=== PATIENT | male | born 1955 | race African-American/Black ===

== ENCOUNTER 2019-02-27 14:00 | Emergency (ER) | payer SELFPAY ==
[~2019-02-27] VITALS: Ht 182.9 cm; Wt 64.0 kg
[2019-02-27] MEDS ORDERED: IV NORMAL SALINE 1000 ML BAG IV ONE (14:15)
[2019-02-27 14:29] LABS: BASOPHILS % (AUTO) 0.5 % (0.0-2.0); EOSINOPHILS # (AUTO) 0.3 K/uL (0.0-0.7); EOSINOPHILS % (AUTO) 3.4 % (0.0-7.0); HEMATOCRIT 37.1 % (36.7-47.1); HEMOGLOBIN 12.3 g/dL (12.5-16.3); LYMPHOCYTES # (AUTO) 0.6 K/uL (20.0-40.0); MEAN CORPUSCULAR HEMOGLOBIN 31.2 uug (23.8-33.4); MEAN CORPUSCULAR HGB CONC 33 g/dL (32.5-36.3); MEAN CORPUSCULAR VOLUME 93.8 fL (73.0-96.2); MONOCYTES # (AUTO) 0.7 K/uL (2.0-10.0); MONOCYTES % (AUTO) 7.4 % (0.0-11.0); NEUTROPHILS # (AUTO) 7.4 K/uL (1.8-8.9); NEUTROPHILS % (AUTO) 81.7 % (38.5-71.5); PLATELET COUNT (AUTO) 130 K/uL (152-348); RED BLOOD CELL COUNT(AUTO) 3.96 MIL/uL (4.06-5.63)
--- NOTE | 2019-02-27 14:33 | NUR ---
Security officers x2 are at bedside checking for contrabond items (e.g. crack pipe seenlighters, matches, green colored "crumbs").
[2019-02-27 14:38] LABS: CREATININE 0.9 mg/dL (0.6-1.3); POTASSIUM 3.6 mmol/L (3.5-5.1)
[2019-02-27 14:43] LABS: BILIRUBIN,DIRECT 0.2 mg/dL (0.0-0.2); BILIRUBIN,TOTAL 0.9 mg/dL (0.2-1.0); TOTAL PROTEIN, SERUM 6.7 g/dL (6.4-8.2)
[2019-02-27 14:45] LABS: ETHANOL < 3 MG/DL (0-0)
--- NOTE | 2019-02-27 14:56 | NUR ---
Social worders Karol & Hellen are at bedside.
[2019-02-27 15:01] LABS: CREATINE KINASE, TOTAL 180 U/L (39-308); MAGNESIUM 1.9 mg/dL (1.8-2.4)
--- NOTE | 2019-02-27 15:05 | NUR ---
Call placed to [facility], Dr. Raza has been paged.
--- NOTE | 2019-02-27 15:10 | NUR ---
JERO speaking with Dr. Raza ([facility])
--- NOTE | 2019-02-27 15:13 | NUR ---
Social Work Note Social Work consult was ordered on this 63 year old male who was brought in by [employer] as he was found altered and sleeping with multiple coats on him. [employer] called 911.Pt. speaks softly but is alert and oriented to person, place and situation upon evaluation. He denies substance abuse and tox screen is still pending. Patient says he takes Cogentin and then adds that he takes Haldol. He does not appear psychotic and is neither suicidal or homocidal. Patient request that he be transferred to a half-way downtown. This vp digital marketing social media and crm spoke with Chetan [phone] at [employer] at 1505 and gave a warm hand-off. He said pt. can come there today and was advised by this mortgage underwriter that the patient is still in our ED. Pt. is reluctant to provide history. He mumbles when asked if he been hospitalized on a psychiatric unit and says "[facility]". Pt. will be given a TAP card to travel to [facility], [address] [place] [address]. Pt. is very agreeable to going to [facility] and in fact. requested a half-way downtown as he is familiar with the area. Pt. was given resources for follow up for his mental health needs. There does not appear to be any acute psychiatric condition currently. Dr Perrin, treating MD was advised of the plan and will discharge pt. once he is medically clear.Copy of homeless resources and referrals given to patient and a copy was placed in his chart. Pt. signed homeless waiver and copy will be placed in his chart.
--- NOTE | 2019-02-27 15:45 | NUR ---
Patient is for discharge per Dr Perrin. Urine tests are cancelled per MD.
--- NOTE | 2019-02-27 15:49 | NUR ---
Patient was given written and verbal discharge instructions. Patient verbalized understanding & compliance of instructions. Patient is ambulatory with steady gait. Jail placement done with hands off to [facility] staff . Patient was given list of available shelters in surrounding area as well. Copy of EKG was also provided per MD order. TAP card given for bus transportation.
== END 2019-02-27 15:49 | disposition home or self-care (01) ==
LOC: ER 14:00
DX: I44.7 Left bundle-branch block, unspecified (principal); R53.1 Weakness; R07.89 Other chest pain
CPT/HCPCS: 36415; 71045; 80048; 80076; 82550; 83690; 83735; 83880; 84484; 85025; 93005; 99284; G0480; 70030-TC; A4663; J7030